=== PATIENT | female | born 2000 | race Caucasian/White ===

== ENCOUNTER 2021-04-02 02:18 | Inpatient (IN) | payer BC ==
[~2021-04-02] VITALS: Ht 157.5 cm; Wt 59.0 kg
[2021-04-02 02:55] LABS: HEMATOCRIT 40.9 % (31.2-41.9); MEAN CORPUSCULAR HEMOGLOBIN 31.3 uug (24.7-32.8); MEAN CORPUSCULAR VOLUME 90.7 fL (75.5-95.3); PLATELET COUNT (AUTO) 304 K/uL (179-408)
[2021-04-02 03:03] LABS: CREATININE 0.8 mg/dL (0.6-1.3); POTASSIUM 3.9 mmol/L (3.5-5.1)
[2021-04-02 03:32] LABS: *BILIRUBIN,URIN 2+ (NEGATIVE); *BLOOD, URINE 2+ (NEGATIVE); *CLARITY,URINE CLEAR (CLEAR); *COLOR,URINE YELLOW (YELLOW); *KETONES,URINE NEGATIVE (NEGATIVE); *UROBILINOGEN,URINE 0.2 E.U./dl (NORMAL); LEUKOCYTE ESTERASE ,URINE NEGATIVE (NEGATIVE); NITRITE, URINE NEGATIVE (NEGATIVE); PH,URINE 7.5 (5.0-8.0); UGLUCOSE NEGATIVE (NEGATIVE)
--- NOTE | 2021-04-02 03:35 | NUR ---
Dr. Tilley at bedside for MSE
[2021-04-02] MEDS ORDERED: MORPHINE SULFATE 2 MG/1 ML DISP.SYRIN IV ONE (03:45)
[2021-04-02] MEDS ORDERED: IV NS 1000 ML 1,000 ML IV ONE (03:45)
[2021-04-02] MEDS ORDERED: ONDANSETRON 4 MG/2 ML VIAL IV ONE (03:45)
[2021-04-02 03:50] LABS: *URINE HCG, QUAL NEGATIVE (NEGATIVE); BACTERIA,URINE NONE SEEN /HPF (NONE SEEN); SQUAMOUS EPITHELIAL CELL,UR FEW /HPF (NONE SEEN); WBC,URINE 0-3 /HPF (0-3)
[2021-04-02] MEDS ORDERED: MORPHINE SULFATE 2 MG/1 ML DISP.SYRIN ONE (04:11)
[2021-04-02] MEDS ORDERED: ONDANSETRON 4 MG/2 ML VIAL ONE (04:11)
[2021-04-02] MEDS ORDERED: SWABABLE VALVE TRANSFER SET EA MC ONE (04:27)
[2021-04-02] MEDS ORDERED: IOHEXOL 300MG/ML 100 ML INFUS..BTL ONE (04:28)
[2021-04-02] MEDS ORDERED: IV NORMAL SALINE 250 ML IV ONE (04:28)
[2021-04-02 04:30] LABS: ALANINE AMINOTRANSFERASE 886 U/L (14-59); ALKALINE PHOSPHATASE 437 U/L (50-136); ASPARTATE AMINOTRANSFERASE 541 U/L (15-37); BILIRUBIN,DIRECT 2.3 mg/dL (0.0-0.2); BILIRUBIN,TOTAL 3.1 mg/dL (0.2-1.0); TOTAL PROTEIN, SERUM 8.6 g/dL (6.4-8.2)
[2021-04-02] MEDS ORDERED: PIPERACILLIN SODIUM/TAZOBACTAM 3.375 G in IV DEXTROSE 5% 50 ML IV ONE (06:30)
[2021-04-02] MEDS ORDERED: PIPERACILLIN/TAZOBACTAM/D5W 50 ML IV ONE (06:47)
[2021-04-02] MEDS ORDERED: POLY17PO4 PO (06:54)
[2021-04-02] MEDS ORDERED: FLUV50TA3 PO (06:54)
[2021-04-02] MEDS ORDERED: DULO30CA2 PO (06:54)
[2021-04-02] MEDS ORDERED: FLUVOXAMINE PO (06:54)
[2021-04-02] MEDS ORDERED: DOXYCYCLINE HYCLATE IV 100 MG in IV DEXTROSE 5% 100 ML IV ONE (07:00)
[2021-04-02] MEDS ORDERED: METRONIDAZOLE 500 MG/NS 100 ML PIGGYBACK IV ONE (07:00)
[2021-04-02] MEDS ORDERED: CEFOXITIN IV ONE (07:00)
[2021-04-02] MEDS ORDERED: DEXTROSE 5% IV ONE (07:00)
--- NOTE | 2021-04-02 07:00 | NUR ---
Zosyn IVPB discontinued, not given.
[2021-04-02] MEDS ORDERED: METRONIDAZOLE 500 MG/NS 100ML 100 ML IV ONE (07:14)
--- NOTE | 2021-04-02 07:19 | NUR ---
GAVE REPORT TO BEN OSMAN.
--- NOTE | 2021-04-02 11:00 | NUR ---
AYAD AGGARWAL FINAL TOUCH UP PAINTER CALLED BACK SPOKE WITH DR CORLEY ACCEPTED PATIENT FOR ADMISSION.
--- NOTE | 2021-04-02 11:22 | NUR ---
received report from Jose
--- NOTE | 2021-04-02 11:48 | NUR ---
ADMITTED THE PATIENT UNDER TELE, ON SINUS RHYTHM. A/OX4, DENIES PAIN UPON ARRIVAL IN THE UNIT. SHE IS AMBULATORY. SKIN ASSESSMENT DONE, PHOTO IN THE CHART. NOTED WITH STERISTRIPS ON THE ABDOMINAL AREA, S/P SURGERY FOR RECTAL PROLAPSE, NOTED WITH REDNESS/SCAB ON THE RIGHT HEEL, ON WOUND CONSULT. SHE IS ON ROOM AIR. WILL CONTINUE TO MONITOR.
[2021-04-02 12:00] VITALS: BP 105/64
[2021-04-02] MEDS ORDERED: ONDANSETRON 4 MG/2 ML VIAL IV PRN (12:45)
[2021-04-02] MEDS ORDERED: MORPHINE SULFATE 2 MG/1 ML DISP.SYRIN IV PRN (12:45)
[2021-04-02] MEDS ORDERED: IV NS 1000 ML 1,000 ML IV PRN (12:45)
[2021-04-02] MEDS ORDERED: MIRALAX 17 GM POWD.PACK PO PRN (13:15)
[2021-04-02] MEDS ORDERED: MEROPENEM 1 G in IV NORMAL SALINE 100 ML IV SCH (14:00)
[2021-04-02] MEDS: MEROPENEM 1 G in IV NORMAL SALINE 100 ML IV SCH ×2 (14:01→21:00)
[2021-04-02] MEDS: FAMOTIDINE. 20 MG/2 ML VIAL IV SCH ×2 (14:03→22:34)
[2021-04-02 15:38] VITALS: BP 101/56
--- NOTE | 2021-04-02 18:58 | NUR ---
PATIENT IS FOR MRCP W/O CONTRAST PER MD ORDER, CONSENTS SIGNED. PATIENT WILL BE PICKED UP AT 0800H ON 04/03 PER .
--- NOTE | 2021-04-02 19:00 | NUR ---
PATIENT REMAINED ON NPO ORDERED. NO PAIN REPORTED DURING THE SHIFT. IV INTACT TO THE LEFT AC, 20G. ON NS 1L RUNNING AT 75CC/HR, INFUSING WELL STARTED AT 1330H. FREQUENT CHECKS DONE. ALL NEEDS ATTENDED. KEPT SAFE AT ALL TIMES. KEPT CALL LIGHT WITHIN REACH. WILL ENDORSE TO THE NEXT SHIFT FOR CONTINUITY OF CARE.
[2021-04-02 19:52] VITALS: BP 103/68
[2021-04-02] MEDS ORDERED: IV D5/ 0.9% NACL 1,000 ML IV PRN (20:15)
[2021-04-02] MEDS ORDERED: FLUVOXAMINE MALEATE 50 MG TABLET PO SCH (21:00)
[2021-04-03 00:06] VITALS: BP 101/62
[2021-04-03 04:25] VITALS: BP 109/69
--- NOTE | 2021-04-03 05:51 | NUR ---
Pt slept throughout the night. IV fluids changed to D5NS because patient is NPO. States that she feels better with these fluids than the NS and is "less weak." MRCP scheduled today. Checklist complete. Pt denies being nauseous or having abd pain at this time. No other issues or concerns at this time, will endorse to day shift.
[2021-04-03] MEDS: MEROPENEM 1 G in IV NORMAL SALINE 100 ML IV SCH ×2 (06:00→13:52)
--- NOTE | 2021-04-03 07:40 | NUR ---
recieved patient on NPO for MRCP at [place]. patient is awake, alert, oriented. no signs of pain or distress. Sinus rhythm monitoring.
[2021-04-03 08:40] LABS: HEMATOCRIT 36.3 % (31.2-41.9); MEAN CORPUSCULAR HEMOGLOBIN 31.2 uug (24.7-32.8); MEAN CORPUSCULAR VOLUME 90.8 fL (75.5-95.3); PLATELET COUNT (AUTO) 253 K/uL (179-408)
--- NOTE | 2021-04-03 08:45 | NUR ---
patient went to [facility] for [facility] via ambulance
[2021-04-03 08:55] LABS: BILIRUBIN,TOTAL 0.7 mg/dL (0.2-1.0); CREATININE 0.7 mg/dL (0.6-1.3); MAGNESIUM 1.8 mg/dL (1.8-2.4); PHOSPHOROUS 3.4 mg/dL (2.5-4.9); POTASSIUM 3.4 mmol/L (3.5-5.1); TOTAL PROTEIN, SERUM 6.8 g/dL (6.4-8.2)
[2021-04-03] MEDS ORDERED: PANTOPRAZOLE SODIUM 40 MG VIAL IV SCH (09:00)
[2021-04-03 09:03] LABS: THYROID STIMULATING HORMONE 0.909 mIU/mL (0.358-3.740)
[2021-04-03] MEDS: FAMOTIDINE. 20 MG/2 ML VIAL IV SCH (10:02)
[2021-04-03] MEDS ORDERED: POTASSIUM CHLORIDE 20 MEQ TAB.PRT.SR PO ONE (10:15)
--- NOTE | 2021-04-03 10:30 | NUR ---
Back from [place] via ambulance, no changes in mental status from am assessment.
[2021-04-03 11:41] VITALS: BP 102/60
--- NOTE | 2021-04-03 12:00 | NUR ---
Seen by hospital lead, DR. Pratt and said okay to start on clear liquid diet, advance to regular diet as tolerated.
[2021-04-03] MEDS ORDERED: MIRALAX 17 GM POWD.PACK PO ONE (14:15)
--- NOTE | 2021-04-03 15:17 | NUR ---
Hospital lead Dr. Pratt noted results MRCP, discuss with patient and mother, clear liquid given, if tolerate advance to regular diet and plan to discharge patient. Patient denies any pain, N/V.
[2021-04-03 16:00] VITALS: BP_SYST 100; BP_SYST 95; BP_DIAS 60; BP_DIAS 64
--- NOTE | 2021-04-03 18:54 | NUR ---
discharged home accompanied by mother. medication and follow up instructions given.
[2021-04-03] MEDS ORDERED: FAMOTIDINE 20 MG TABLET PO SCH (21:00)
[2021-04-04 06:06] LABS: HEPATITIS A AB, TOTAL Positive (Negative); HEPATITIS B SURFACE AG Negative (Negative)
== END 2021-04-03 18:55 | disposition home or self-care (01) | DRG 442 ==
LOC: ER 02:25 → MEDSURG3 11:34 → TELE3 17:28 → MEDSURG3 04-03 15:29
PROVIDERS: ADMIT Hospitalist; ATTEND Hospitalist
DX: B15.9 Hepatitis A without hepatic coma (principal); K51.90 Ulcerative colitis, unspecified, without complications; J45.909 Unspecified asthma, uncomplicated; K80.20 Calculus of gallbladder without cholecystitis without obstruction; F32.A Depression, unspecified; F41.9 Anxiety disorder, unspecified; R74.01 Elevation of levels of liver transaminase levels; E80.6 Other disorders of bilirubin metabolism; Z20.822 Contact with and (suspected) exposure to COVID-19; Z98.890 Other specified postprocedural states; K59.00 Constipation, unspecified; E87.6 Hypokalemia; F42.9 Obsessive-compulsive disorder, unspecified
CPT/HCPCS: 36415; 74181; 76856; 83690; 83735; 84100; 84443; 84703; 85025; 85610; 85730; 86140; 86704; 86705; 86706; 86708; 86803; 87340; 87491; A4663; G0378; J0694; J2185; J2270; J2405; J2543; J3490; J7030; J7040; J7042; J7050; J7060; Q9967